=== PATIENT | male | born 1990 | race Two or more races ===

== ENCOUNTER 2021-02-27 14:01 | Emergency (ER) | payer MEDICAID, OTHER ==
[~2021-02-27] VITALS: Ht 182.9 cm; Wt 133.8 kg
[~2021-02-27 14:01] MED LIST: GLYB5TAB8 PO; METF-370 PO
[2021-02-27] MEDS ORDERED: cefTRIAXone 1GM/50ML D5W 50 ML IV ONE ×2 (16:45)
[2021-02-27 18:00] VITALS: BP 160/89
== END 2021-02-27 18:34 | disposition home or self-care (01) ==
LOC: ER 14:01
DX: N49.2 Inflammatory disorders of scrotum (principal); F17.210 Nicotine dependence, cigarettes, uncomplicated
CPT/HCPCS: 96365; 99284; J0696

== ENCOUNTER 2021-02-28 14:06 | Inpatient (IN) | payer MEDICAID ==
[~2021-02-28] VITALS: Ht 182.9 cm; Wt 136.5 kg
[2021-02-28] MEDS ORDERED: PIPERACILLIN-TAZOB 3.375GM 100 ML IV ONE (16:15)
[2021-02-28] MEDS ORDERED: NITROGLYCERIN 0.4 MG SL TAB SL PRN (17:00)
[2021-02-28] MEDS ORDERED: DEXTROSE (50%) 50ML SYRG IV PRN (17:00)
[2021-02-28] MEDS: InsuLIN REG 1unit/0.01ml Soln (100units/ml) SC SCH ×2 (17:00→22:24)
[2021-02-28] MEDS ORDERED: ONDANSETRON HCL 4 MG/2 ML VIAL IV PRN (17:00)
[2021-02-28] MEDS ORDERED: ALUM & MAG HYDROX-SIMETH LIQ(MAALOX) 30 ML PO PRN (17:00)
[2021-02-28] MEDS ORDERED: LORazepam 0.5 MG TAB PO PRN (17:00)
[2021-02-28] MEDS ORDERED: DOCUSATE SOD 100 MG CAP PO PRN (17:00)
[2021-02-28] MEDS: ACCU-CHEK COMFORT CURVE STRIP VI SCH ×2 (17:00→22:19)
[2021-02-28] MEDS ORDERED: ACETAMINOPHEN 325 MG TAB PO PRN (17:00)
[2021-02-28] MEDS ORDERED: HYDROcodone-ACET 5/325MG TAB PO PRN (17:00)
[2021-02-28] MEDS ORDERED: MORPHINE SULFATE INJECTION 2 MG/ML SYRG IV PRN ×2 (17:00)
[2021-02-28] MEDS ORDERED: hydrALAZINE HCL 20 MG/ML VL IV PRN (17:00)
[2021-02-28] MEDS: SODIUM CHLORIDE 0.9% 1,000 ML IV SCH (17:00)
[2021-02-28 17:19] LABS: Basophils # (auto) 0.1 10 ^3/uL (0-0.2); Basophils % (auto) 0.6 % (0.0-2.0); Eosinophils # (auto) 0.1 10 ^3/uL (0-0.8); Eosinophils % (auto) 1.4 % (0.0-7.0); Hematocrit 44.9 % (41.0-53.0); Hemoglobin 15.5 g/dL (13.5-17.5); Lymphocytes # (auto) 2.8 10 ^3/uL (0.4-5.4); Lymphocytes % (auto) 27.7 % (10.0-50.0); Mean Corpuscular Hemoglobin 29.4 pg (28.0-32.0); Mean Corpuscular Hgb Conc. 34.6 g/dL (32.0-36.0); Mean Corpuscular Volume 84.8 fL (80.0-100.0); Monocytes # (auto) 1.2 10 ^3/uL (0-1.3); Monocytes % (auto) 11.9 % (0.0-12.0); Neutrophils # (auto) 5.9 10 ^3/uL (1.6-8.6); Neutrophils % (auto) 58.4 % (37.0-80.0); Red Blood Cells 5.29 10^6/uL (4.5-5.90); Red Cell Distribution Width 13.6 % (11.8-14.3)
[2021-02-28 17:24] LABS: BUN/Creatinine Ratio 26.6; Calcium 8.9 mg/dL (8.5-10.1); Potassium 4.5 mmol/L (3.5-5.1)
[2021-02-28 17:31] LABS: Urine Bacteria NONE SEEN /hpf (None Seen); Urine Blood 2+ /uL (Negative); Urine Specific Gravity 1.028 (1.001-1.035); Urine WBC 3 /hpf (0 - 3)
[2021-02-28 17:38] LABS: Cholesterol 149 mg/dL (< 200)
[2021-02-28 17:42] LABS: HDL Cholesterol 49 mg/dL (40-59); LDL Cholesterol 76 mg/dL (< 100); Triglycerides 173 mg/dL (< 150)
[2021-02-28 17:45] LABS: INR 0.99 (0.9-1.15); Partial Thromboplastin Time 28.6 sec (23.0-31.2)
[2021-02-28 17:46] LABS: Alcohol, Urine < 3.0 mg/dL (0-10); Amphetamine Screen, Urine NEGATIVE (NEGATIVE); Barbiturate Scree,Urine NEGATIVE (NEGATIVE); Benzodiazephine Screen, Urine NEGATIVE (NEGATIVE); Cannabinoid Screen, Urine NEGATIVE (NEGATIVE); Cocaine Screen, Urine NEGATIVE (NEGATIVE); Opiate Scree,Urine NEGATIVE (NEGATIVE); Phencyclidine Screen, Urine NEGATIVE (NEGATIVE)
[2021-02-28 20:00] VITALS: BP 146/104
[2021-02-28 21:32] VITALS: BP 146/104
[2021-02-28] MEDS: ATORVASTATIN 20 MG TAB PO SCH (22:19)
[2021-03-01] MEDS: AMPICILLIN & SULBACTAM SODIUM 3 GM in SODIUM CHL 0.9% 100 ML IV SCH ×2 (00:01→06:20)
[2021-03-01] MEDS ORDERED: ATOR40TA52 PO (04:34)
[2021-03-01] MEDS ORDERED: INSU1INJ19 SC (04:34)
[2021-03-01] MEDS ORDERED: LISI-716 PO (04:34)
[2021-03-01 04:57] VITALS: BP 162/85
[2021-03-01] MEDS: ACCU-CHEK COMFORT CURVE STRIP VI SCH ×4 (06:20→22:28)
[2021-03-01] MEDS: InsuLIN REG 1unit/0.01ml Soln (100units/ml) SC SCH ×4 (06:23→22:42)
[2021-03-01 06:39] LABS: Basophils # (auto) 0.1 10 ^3/uL (0-0.2); Basophils % (auto) 1.1 % (0.0-2.0); Eosinophils # (auto) 0.2 10 ^3/uL (0-0.8); Eosinophils % (auto) 2.1 % (0.0-7.0); Hematocrit 42.3 % (41.0-53.0); Hemoglobin 14.4 g/dL (13.5-17.5); Lymphocytes # (auto) 3.2 10 ^3/uL (0.4-5.4); Lymphocytes % (auto) 35.7 % (10.0-50.0); Mean Corpuscular Hemoglobin 28.9 pg (28.0-32.0); Mean Corpuscular Hgb Conc. 34.2 g/dL (32.0-36.0); Mean Corpuscular Volume 84.7 fL (80.0-100.0); Monocytes # (auto) 1.1 10 ^3/uL (0-1.3); Monocytes % (auto) 12.4 % (0.0-12.0); Neutrophils # (auto) 4.4 10 ^3/uL (1.6-8.6); Neutrophils % (auto) 48.7 % (37.0-80.0); Nucleated Red Blood Cells % 0.1 %; Red Blood Cells 4.99 10^6/uL (4.5-5.90); Red Cell Distribution Width 13.9 % (11.8-14.3); White Blood Cell 9.1 10^3/uL (4.4-10.8)
[2021-03-01 06:53] LABS: INR 1.01 (0.9-1.15); Partial Thromboplastin Time 26.9 sec (23.0-31.2)
[2021-03-01 06:56] LABS: Albumin 2.1 g/dL (3.4-5.0); Calcium 8.2 mg/dL (8.5-10.1); Magnesium 2.1 mg/dL (1.6-2.6); Potassium 4.1 mmol/L (3.5-5.1)
[2021-03-01 07:02] LABS: BUN/Creatinine Ratio 26.7; Bilirubin, Total 0.3 mg/dL (0.2-1.0); Phosphorus 3.4 mg/dL (2.5-4.90); Total Protein 6.7 g/dL (6.4-8.2)
[2021-03-01 09:00] VITALS: BP 142/88
[2021-03-01] MEDS: ENOXAPARIN SOD 40 MG/0.4 ML SYRINGE SC SCH (10:16)
[2021-03-01] MEDS: SODIUM CHLORIDE 0.9% 1,000 ML IV SCH (10:19)
[2021-03-01 13:00] VITALS: BP 149/82
[2021-03-01] MEDS: CLINDAMYCIN 300MG IV 50 ML IV SCH ×2 (14:18→22:28)
[2021-03-01 17:00] VITALS: BP 134/81
[2021-03-01] MEDS: DOXYCYCLINE 100MG/250ML 250 ML IV SCH (17:05)
[2021-03-01 22:00] VITALS: BP 163/89
[2021-03-01] MEDS: ATORVASTATIN 20 MG TAB PO SCH (22:28)
[2021-03-02] MEDS: SODIUM CHLORIDE 0.9% 1,000 ML IV SCH ×2 (02:20→19:00)
[2021-03-02] MEDS: DOXYCYCLINE 100MG/250ML 250 ML IV SCH ×2 (04:18→16:42)
[2021-03-02 05:00] VITALS: BP 134/89
[2021-03-02] MEDS: CLINDAMYCIN 300MG IV 50 ML IV SCH ×3 (06:43→21:40)
[2021-03-02] MEDS: ACCU-CHEK COMFORT CURVE STRIP VI SCH ×4 (06:43→21:40)
[2021-03-02] MEDS: InsuLIN REG 1unit/0.01ml Soln (100units/ml) SC SCH ×4 (06:45→22:06)
[2021-03-02 08:41] VITALS: BP 143/85
[2021-03-02] MEDS: ENOXAPARIN SOD 40 MG/0.4 ML SYRINGE SC SCH (10:16)
[2021-03-02 12:16] VITALS: BP 139/83
[2021-03-02 17:00] VITALS: BP 139/93
[2021-03-02] MEDS: ATORVASTATIN 20 MG TAB PO SCH (21:40)
[2021-03-02 22:00] VITALS: BP 135/83
[2021-03-03] MEDS: DOXYCYCLINE 100MG/250ML 250 ML IV SCH (04:10)
[2021-03-03 05:10] VITALS: BP 152/72
[2021-03-03] MEDS: CLINDAMYCIN 300MG IV 50 ML IV SCH (06:28)
[2021-03-03] MEDS: ACCU-CHEK COMFORT CURVE STRIP VI SCH ×2 (06:28→11:55)
[2021-03-03] MEDS: InsuLIN REG 1unit/0.01ml Soln (100units/ml) SC SCH ×2 (06:30→11:55)
[2021-03-03 09:00] VITALS: BP 151/86
[2021-03-03] MEDS: ENOXAPARIN SOD 40 MG/0.4 ML SYRINGE SC SCH (10:00)
[2021-03-03] MEDS: SODIUM CHLORIDE 0.9% 1,000 ML IV SCH (11:56)
[2021-03-03 12:31] VITALS: BP 150/84
== END 2021-03-03 15:00 | disposition home or self-care (01) | DRG 501 ==
LOC: ER 14:06 → TELE-CENTR 17:02
PROVIDERS: ADMIT Hospitalist; ATTEND Family Medicine
DX: N49.2 Inflammatory disorders of scrotum (principal); E11.65 Type 2 diabetes mellitus with hyperglycemia; N50.89 Other specified disorders of the male genital organs; E66.01 Morbid (severe) obesity due to excess calories; E78.00 Pure hypercholesterolemia, unspecified; E78.5 Hyperlipidemia, unspecified; Z20.822 Contact with and (suspected) exposure to COVID-19; I10 Essential (primary) hypertension; R31.29 Other microscopic hematuria; Z68.41 Body mass index [BMI] 40.0-44.9, adult; Z79.899 Other long term (current) drug therapy
CPT/HCPCS: 36415; 74176; 76705; 76870; 80048; 80053; 80061; 80307; 81001; 82962; 83036; 83605; 83735; 84100; 84484; 85025; 85610; 85730; 86850; 86900; 86901; 87040; 87086; 87426; 96365; 96366; G0378; J1815; J2543; J3490

== ENCOUNTER 2021-05-10 12:44 | Emergency (ER) | payer MEDICAID ==
[~2021-05-10] VITALS: Ht 182.9 cm; Wt 136.1 kg
[~2021-05-10 12:44] MED LIST changes: +ATOR40TA52 PO; -GLYB5TAB8 PO; +INSU1INJ19 SC; +LISI-716 PO
[2021-05-10 15:06] VITALS: BP 151/102
== END 2021-05-10 14:16 | disposition home or self-care (01) ==
LOC: ER 12:44
DX: M72.2 Plantar fascial fibromatosis (principal); M77.32 Calcaneal spur, left foot; I10 Essential (primary) hypertension; E11.9 Type 2 diabetes mellitus without complications; F17.210 Nicotine dependence, cigarettes, uncomplicated; Z90.89 Acquired absence of other organs; Z79.4 Long term (current) use of insulin; Z79.899 Other long term (current) drug therapy
CPT/HCPCS: 73630

== ENCOUNTER 2022-08-26 20:00 | Emergency (ER) | payer MEDICAID, OTHER ==
[~2022-08-26] VITALS: Ht 182.9 cm; Wt 136.3 kg
[2022-08-26] MEDS ORDERED: KETOROLAC TROMETH 60MG/2ML VIAL IM ONE (23:45)
[2022-08-27 06:15] VITALS: BP 142/82
== END 2022-08-27 06:18 | disposition home or self-care (01) ==
LOC: ER 20:00
DX: M54.50 Low back pain, unspecified (principal); E11.9 Type 2 diabetes mellitus without complications; I10 Essential (primary) hypertension; F17.200 Nicotine dependence, unspecified, uncomplicated; Z79.899 Other long term (current) drug therapy; Z90.89 Acquired absence of other organs; Z79.84 Long term (current) use of oral hypoglycemic drugs
CPT/HCPCS: 72070; 72100; 96372; 99284; J1885

== ENCOUNTER 2025-08-27 19:27 | Emergency (ER) | payer MEDICAID, OTHER ==
[~2025-08-27] VITALS: Ht 182.9 cm; Wt 149.0 kg
[~2025-08-27 19:27] MED LIST changes: -LISI-716 PO; +LISI10TA34 PO
--- NOTE | 2025-08-27 19:52 | ECG ---
[facility] Test Date: 2025-08-27 Test Time: 19:45:29 Pat Name: DALJIT POLANCO Department: ED Room: Gender: M Inside Account Representative: : 1990 Requested By: PERRY LERMA* Order Number: [id number] Reading MD: Measurements Intervals [place] Rate: 88 P: 52 [place]: 159 QRS: -82 QRSD: 115 T: 31 QT: 386 QTc: 467 Interpretive Statements Sinus rhythm Left anterior fascicular block ST elev, probable normal early repol pattern Please click the below link to view image of tracing.
--- NOTE | 2025-08-27 20:14 | ED.PDOC ---
SOB-HPI HPI Comments This is a 35 year old male presenting to the ED with chief complaint of cough. Patient reports that he has been experiencing a productive cough with associated palpitations for the past few days. Patient relays that his cough occurs intermittently throughout the day. Patient denies any sick contacts, fever, chills, SOB, chest pain, dizziness, or headache. Chief Complaint: Cough Time Seen by MD: 20:11 Primary Care Provider: UNKNOWN Reviewed notes: Nurses Notes, Medications, Allergies Information Source: Patient Mode of Arrival: Ambulatory Severity: Mild Timing: Days Duration: Since onset Context: At Rest PE Risk Factors: None History of: None Prehospital treatment: None Modifying Factors: Nothing Associated Signs and Symptoms: Cough If cough with SOB: Productive, Clear Past Medical History PAST MEDICAL HISTORY: Anxiety, DM, HTN Surgical History: Tonsillectomy Family History Family History: Reviewed,noncontributory to illness, Family hx of heart el Social History Smoker: Cigarettes, Less Than 1 Pack/Day Alcohol: Denies ETOH Use Drugs: Denies Drug Use Lives In: Home Constitutional: denies: chills, diaphoresis, fatigue, fever, malaise, sweats, weakness, others EENTM: denies: blurred vision, double vision, ear bleeding, ear discharge, ear drainage, ear pain, ear ringing, eye pain, eye redness, hearing loss, mouth pain, mouth swelling, nasal discharge, nose bleeding, nose congestion, nose pain, photophobia, tearing, throat pain, throat swelling, voice changes, others Respiratory: reports: cough; denies: hemoptysis, orthopnea, SOB at rest, shortness of breath, SOB with excertion, stridor, wheezing, others Cardiovascular: reports: palpitations; denies: chest pain, dizzy spells, diaphoresis, Dyspnea on exertion, edema, irregular heart beat, left arm pain, lightheadedness, PND, syncope, others Gastrointestinal: denies: abdomen distended, abdominal pain, blood streaked bowels, constipated, diarrhea, dysphagia, difficulty swallowing, hematemesis, melena, nausea, poor appetite, poor fluid intake, rectal bleeding, rectal pain, vomiting, others Genitourinary: denies: burning, dysuria, flank pain, frequency, hematuria, incontinence, penile discharge, penile sore, pain, testicle pain, testicle swelling, urgency, others Neurological: denies: dizziness, fainting, headache, left sided numbness, left sided weakness, numbness, paresthesia, pre-existing deficit, right sided numbness, right sided weakness, seizure, speech problems, tingling, tremors, weakness, others Musculoskeletal: denies: back pain, gout, joint pain, joint swelling, muscle pain, muscle stiffness, neck pain, others Integumetry: denies: bruises, change in color, change in hair/nails, dryness, laceration, lesions, lumps, rash, wounds, others Allergic/Immunocompromised: denies: Difficulty Healing, Frequent Infections, Hives, Itching, others Hematologic/Lymphatic: denies: anemia, blood clots, easy bleeding, easy bruising, swollen glands, others Endocrine: denies: excessive hunger, excessive sweating, excessive thirst, excessive urination, flushing, intolerance to cold, intolerance to heat, unexplained weight gain, unexplained weight loss, others Psychiatric: denies: anxiety, bipolar disorder, depression, hopeless, panic disorder, schizophrenia, sleepless, suicidal, others All Other Systems: Reviewed and Negative Physical Exam General Appearance: No Apparent Distress, Normal HEENT: Normal ENT Inspection, Pharynx Normal, TMs Normal Neck: Full Range of Motion, Non-Tender, Normal, Normal Inspection Respiratory: Chest Non-Tender, Lungs Clear, No Accessory Muscle Use, No Respira tory Distress, Normal Breath Sounds Cardiovascular: No Edema, No JVD, No Murmur, No Gallop, Normal Peripheral Pulses, Regular Rate/Rhythm Breast Exam: Deferred Gastrointestinal: No Organomegaly, Non Tender, No Pulsatile Mass, Normal Bowel Sounds, Soft Genitalia: Deferred Pelvic: Deferred Rectal: Deferred Extremities: No calf tenderness, Normal capillary refill, Normal inspection, Normal range of motion, Non-tender, No pedal edema Musculoskeletal : Apperance: Normal Neurologic: Alert, revenue stamp clerk II-XII nml as Tested, No Motor Deficits, Normal Affect, Normal Mood, No Sensory Deficits Cerebellar Function: Normal Reflexes: Normal Skin: Dry, Normal Color, Warm Lymphatic: No Adenopathy EKG EKG : Pulse Rate (adult): 88 [place]: Normal Cardiac Rhythm: NSR Was a procedure done? Was a procedure done?: No Differential Dx Differential Diagnosis: Asthma, Bronchitis, COPD, Dysrhythmia X-Ray, Labs, Meds, VS Vital Signs Date Time Temp Pulse Resp B/P (MAP) Pulse Ox O2 Delivery O2 Flow Rate FiO2 08/27/25 20:14 88 08/27/25 19:45 88 08/27/25 19:33 97.6 95 20 187/102 97 97.6 X-Ray, Labs, Meds, VS Comment Imaging was reviewed by this provider, there is no obvious pathological or acute disease process. Pending radiology review Labs were reviewed by this provider, no abnormalities Vital signs reviewed by this provider, clinically stable Time of 1ST Reevaluation: 20:20 Reevaluation 1ST: Unchanged Patient Education/Counseling: Diagnosis, Treatment, Need For Follow Up (Follow up with PCP next available appointment. Return to the emergency department if symptoms worsen.) Family Education/Counseling: Prognosis, No Family Present SEPSIS Sepsis Screen Date sepsis recognized/suspect: Aug 27, 2025 Time Sepsis recognized/suspect: 1934 Recent Procedure: No On Antibiotic Therapy: No Respiratory Rate >20: No Heart Rate >90: No Temp<36 C (96.8 F) or >38.3 C: No SBP <90 or MAP <65 mmHG: No New Acute Mental Status Change: No Is the patient on CPAP, BIPAP,: No Vital Signs Date Time Temp Pulse Resp B/P (MAP) Pulse Ox O2 Delivery O2 Flow Rate FiO2 08/27/25 20:14 88 08/27/25 19:45 88 08/27/25 19:33 97.6 95 20 187/102 97 97.6 Departure 1 Departure Time of Disposition: 20:44 Impression: Primary Impression: Cough Qualified Codes: R05.1 - Acute cough Disposition: HOME / SELF CARE / HOMELESS Condition: Stable e-Prescriptions Albuterol Sulfate (Albuterol Sulfate Hfa) 108 Mcg/Act Aer 108 MCG IN TID PRN, #1 AER Prov: PERRY TYLER CLERICAL ADMINISTRATIVE ASSISTANT 08/27/25 Benzonatate (Benzonatate) 200 Mg Cap 1 CAP PO TID PRN, #30 CAP Prov: PERRY TYLER CLERICAL ADMINISTRATIVE ASSISTANT 08/27/25 Discharged With: Self Critical Care Note Critical Care Time?: No Stability Stability form required: No Heart Score Heart Score: Heart Score Response (Comments) Value History Slightly Suspicious 0 EKG Normal 0 Age <45 0 Risk Factors No known risk factors 0 Troponin N/A 0 Total 0 I personally scribed for PERRY TYLER CLERICAL ADMINISTRATIVE ASSISTANT ([email or web address]) on 08/27/25 at 20:14. Electronically submitted by Attila Amaro ([email or web address]). I personally scribed for PERRY TYLER CLERICAL ADMINISTRATIVE ASSISTANT ([email or web address]) on 08/27/25 at 20:15. Electronically submitted by Attila Amaro ([email or web address]). PERRY TYLER CLERICAL ADMINISTRATIVE ASSISTANT Aug 27, 2025 20:14
[2025-08-27] MEDS ORDERED: BENZ200C64 PO (20:49)
[2025-08-27] MEDS ORDERED: ALBU108A5 IN (20:49)
[2025-08-27 21:05] VITALS: PULSE 86; RESP 20; O2SAT 97
[2025-08-27 21:06] VITALS: BP 161/100; PULSE 86; RESP 20; TEMP 97.9; O2SAT 97
== END 2025-08-27 21:15 | disposition home or self-care (01) ==
LOC: ER 19:27
DX: R05.9 Cough, unspecified (principal); F17.210 Nicotine dependence, cigarettes, uncomplicated; E11.9 Type 2 diabetes mellitus without complications; I10 Essential (primary) hypertension; F41.9 Anxiety disorder, unspecified; Z90.89 Acquired absence of other organs
CPT/HCPCS: 93005